=== PATIENT | male | born 1955 | race Caucasian/White ===

== ENCOUNTER 2019-02-14 12:32 | Outpatient (RCR) | payer OTHER ==
[~2019-02-14 12:32] MED LIST: LISINOPRIL HCTZ1 TAB PO; MED FOR ARTHRITIS; ONE DAILY 50 PL1 TAB PO; TENORMIN50 MG PO
== END 2019-02-18 15:38 | disposition home or self-care (01) ==
LOC: WSOH 12:32
DX: T54.1X1A Toxic effect of other corrosive organic compounds, accidental (unintentional), initial encounter (principal); T25.622A Corrosion of second degree of left foot, initial encounter; T25.621A Corrosion of second degree of right foot, initial encounter; Y92.214 College as the place of occurrence of the external cause; Y93.H3 Activity, building and construction; Y99.0 Civilian activity done for income or pay; I10 Essential (primary) hypertension; Z79.899 Other long term (current) drug therapy; M19.90 Unspecified osteoarthritis, unspecified site; Z88.0 Allergy status to penicillin; Z88.6 Allergy status to analgesic agent

== ENCOUNTER 2021-04-25 07:41 | Inpatient (IN) | payer BC, MEDICARE ==
[~2021-04-25] VITALS: Ht 180.3 cm; Wt 106.6 kg
[2021-04-25 08:13] LABS: BASO # 0.1 K/mm3 (0.0-0.2); BASO % 1.5 % (0.0-2.0); EOS # 0.3 K/mm3 (0.0-0.7); EOS % 3.8 % (0-4.0); GRAN # 4.8 K/mm3 (1.4-6.5); GRAN % 65.4 % (42.2-75.2); HEMATOCRIT 45.8 % (42.0-52.0); HEMOGLOBIN 16.6 g/dl (13.5-18.0); LYMPH # 1.6 K/mm3 (1.2-3.4); LYMPH % 22.3 % (20.0-51.0); MEAN CELL VOLUME 85 fl (80.0-100.0); MEAN CORPUSCULAR HEMOGLOBIN 31 pg (27.0-31.0); MEAN CORPUSCULAR HGB CONC 36 g/dl (33.0-37.0); MONO # 0.5 K/mm3 (0.1-0.6); MONO % 6.7 % (1.7-9.3); PLATELET COUNT 200 K/mm3 (130-400); REDCELL DISTRIBUTION WIDTH-CV 12.5 % (11.5-14.5)
[2021-04-25 08:39] LABS: ALANINE AMINOTRANSFERASE 32 U/L (0-55); ALBUMIN 4.5 gm/dL (3.4-4.8); ALKALINE PHOSPHATASE 60 U/L (40-150); ANION GAP 12 mmol/L (7-16); AST,SGOT 20 U/L (5-34); BILIRUBIN,TOTAL 0.7 mg/dL (0.2-1.2); BLOOD UREA NITROGEN 14 mg/dL (8-26); C-REACTIVE PROTEIN 0.18 mg/dL (0.00-0.50); CALCIUM 10.2 mg/dL (8.4-10.2); CARBON DIOXIDE 23 mmol/L (23-31); CHLORIDE 105 mmol/L (98-107); CREATININE, serum 1.22 mg/dL (0.72-1.25); GLUCOSE 122 mg/dL (70-99); POTASSIUM 3.5 mmol/L (3.5-4.5); SODIUM 140 mmol/L (136-145); TOTAL PROTEIN 8.5 gm/dL (6.2-8.1)
[2021-04-25 09:02] LABS: TROPONIN-I < 0.010 ng/mL (0.00-0.033)
[2021-04-25] MEDS ORDERED: PRINZIDE 25 MG-1 TAB PO (10:55)
[2021-04-25] MEDS ORDERED: NORVASC 5MG5 MG/TAB PO (10:55)
[2021-04-25] MEDS ORDERED: TENORMIN 5050 MG/TAB PO (10:56)
[2021-04-25] MEDS ORDERED: ULTRAM 50MG TAB50 MG PO (10:56)
--- NOTE | 2021-04-25 13:55 | NUR ---
PT ARRIVED TO ROOM 346 AT 1350 FROM THE ER. PT PRESENTED TO THE ER WITH COMPLAINTS OF RIGHT EYE PAIN AND A HEADACHE. VITALS ARE STABLE. PT IS ALERT AND ORIENTED X4. IS NOTIFIED THAT PT HAS ARRIVED TO THE FLOOR AND CORY IS PRESENT AT PT BEDSIDE.
--- NOTE | 2021-04-25 15:20 | NUR ---
HOSPITALIST DOCTOR AT BEDSIDE TO EVAL & TREAT
[2021-04-25 15:39] VITALS: BP 132/82; PULSE 58; TEMP 98.3
[2021-04-25 18:16] LABS: FASTING GLUCOSE 114 mg/dL (70-110)
[2021-04-25 18:42] LABS: 1/2 HR GLUCOSE 145 mg/dL (100-170)
[2021-04-25 19:09] LABS: 1 HR GLUCOSE 190 mg/dL (90-160)
[2021-04-25 19:34] VITALS: BP 129/80; PULSE 85; TEMP 98.1
--- NOTE | 2021-04-25 20:35 | NUR ---
Pt. sitting up in bed. Pt. is A&OX3, assessment complete. Pt. is currently fasting for 3 hr glucose test, last draw is at 2044. Pt. denies pain or other needs, call light within reach.
[2021-04-25 23:26] VITALS: BP 119/64; PULSE 68; TEMP 98
[2021-04-26 03:26] VITALS: BP 134/67; PULSE 62; TEMP 98.3
[2021-04-26 06:45] LABS: HEMATOCRIT 44.8 % (42.0-52.0); HEMOGLOBIN 16.1 g/dl (13.5-18.0); MEAN CELL VOLUME 87 fl (80.0-100.0); MEAN CORPUSCULAR HEMOGLOBIN 31 pg (27.0-31.0); MEAN CORPUSCULAR HGB CONC 36 g/dl (33.0-37.0); MEAN PLATELET VOLUME 10.5 fl (7.4-10.4); PLATELET COUNT 198 K/mm3 (130-400); RED BLOOD COUNT 5.16 M/mm3 (4.20-5.60); REDCELL DISTRIBUTION WIDTH-CV 12.6 % (11.5-14.5)
--- NOTE | 2021-04-26 07:00 | NUR ---
BP 164/88 retaken in 10 min & 129/75, primary nurse notified
[2021-04-26 07:10] LABS: CALCIUM 9.9 mg/dL (8.4-10.2); CREATININE, serum 1.17 mg/dL (0.72-1.25); POTASSIUM 3.3 mmol/L (3.5-4.5)
[2021-04-26 07:15] VITALS: BP 129/75; PULSE 64; TEMP 97.8
--- NOTE | 2021-04-26 07:30 | NUR ---
Right eyelid drooping/wont stay open, both pupils equal & reactive to light. Pt states "Having some double vision/blurriness in R eye" & "Using my R eye gives me a GARCIA & states GARCIA pain is 3/10". Shift assessment completed.
--- NOTE | 2021-04-26 09:18 | NUR ---
DELISA met with the patient to discuss discharge plan. The patient lives alone in [place]. 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 He reports independence with ADLs and does not have any DME. The patient's PCP is Dr. Nam Russell and he receives his medications from [facility]. He reports no difficulties obtaining his meds. The patient does not have a DPOA-HC, but he is interested in obtaining a form. DELISA provided. The patient states that he needs to get his brother, Iván's phone number first, but he plans on designating Iván and then his other brother, Bryon (ph#[phone]), as the alternate. Iván lives in [place] and Bryon lives in [place]. The patient plans to return home upon discharge. SW to follow up with the patient about the DPOA-HC. *Discharge plan: home*
--- NOTE | 2021-04-26 09:52 | NUR ---
PT IS ALERT AND ORIENTED THIS AM. PT IS TENSE AND ANXIOUS ABOUT HIS SITUATION AND WHAT THE PHYSICIAN WILL TELL HIM ABOUT THE RESULTS OF HIS MRI. PT IS STILL REPORTING A HEADACHE AND RIGHT EYE BLURRYNESS. DROOP IS STILL PRESENT. SHIFT ASSESSMENT COMPLETE AND AM MEDICATIONS GIVEN. PT DOES NOT REPORT ANY OTHER NEEDS AT THIS TIME. CALL LIGHT WITHIN REACH AND BREAKFAST BEING DELIVERED
[2021-04-26 10:57] VITALS: BP 111/74; PULSE 61; TEMP 99
--- NOTE | 2021-04-26 12:19 | NUR ---
First visit from the staff design engineer. No needs right now.
--- NOTE | 2021-04-26 14:00 | NUR ---
PATIENT GOING DOWN FOR MRI VIA .
--- NOTE | 2021-04-26 14:15 | NUR ---
NO EYE DOCTOR MANAGER RESTAURANT FOR CONSULT, HOSPITALIST NOTIFIED.
[2021-04-26 15:27] VITALS: BP 107/62; PULSE 62; TEMP 98
--- NOTE | 2021-04-26 15:50 | NUR ---
HOSPITALIST TEAM TALKED WITH CREATIVE ARTS THERAPIST WHO DOES NOT ROUND ON INPATIENT'S. PATIENT TO BE DISCHARGED SO HE CAN BE SEEN IN OFFICE IN APPROX 15-20 MIN. HOSPITALIST TEAM, EXCEPTIONAL CHILDREN'S TEACHER AND NURSING MADE DISCHARGE ARRANGEMENT VIA UBER FOR HIM. IV DC'D AND COVERED WITH GAUZE & COBAN. PATIENT IS GETTING DRESSED.
--- NOTE | 2021-04-26 16:05 | NUR ---
PATIENT DISCHARGING VIA UBER TO GET TO EYE APT. GAVE DISCHARGE PACKET. PATIENT DRESSED AND DISCHARGED.
[2021-04-26 17:36] LABS: LYME DISEASE ANTIBODIES Negative (Negative)
[2021-04-26] MEDS ORDERED: GLUCOPHAGE500 MG/TAB PO (17:40)
[2021-04-28 23:33] LABS: CADMIUM BLOOD <0.2 ng/mL (<5.0); MERCURY,SERUM <1 ng/mL (<10)
== END 2021-04-26 16:05 | disposition home or self-care (01) | DRG 93 ==
LOC: COL.ER 07:41 → SURG 10:13
PROVIDERS: Emergency Medicine; Psychiatry & Neurology Neurology; ADMIT Internal Medicine
DX: G80.9 Cerebral palsy, unspecified (principal); I10 Essential (primary) hypertension; M19.90 Unspecified osteoarthritis, unspecified site; I66.21 Occlusion and stenosis of right posterior cerebral artery; E11.9 Type 2 diabetes mellitus without complications; E87.6 Hypokalemia
CPT/HCPCS: 99223-AI; 99233-AI; 99239; A9585; J1644; J2405; J7030; Q9967